=== PATIENT | female | born 1985 | race Caucasian/White ===

== ENCOUNTER 2016-03-18 08:43 | Emergency (ER) | payer OTHER ==
[~2016-03-18] VITALS: Ht 162.6 cm; Wt 63.1 kg
[~2016-03-18 08:43] MED LIST: BIRTH CONTROL PILLS; CLEOCIN300 MG PO; ENDOCET 5-3251 EACH PO; FEOSOL325 MG PO; IBUPROFEN800 MG PO; Motrin PO; NOHOMEMEDS; PREFERA-OB P1 TABLET PO; PRENATAL TABLE1 EAC3 PO; Percocet 5/325,Endoc PO; REGLAN5 MG PO; TUMS500 MG PO; TYLENOL EXTRA500 MG PO; TYLENOL WITH C1 EACH PO; ULTRAM50 MG PO; VITAMIN B-650 M1 PO
[2016-03-18 10:45] LABS: EOSINOPHIL (%) 0.2 % (0-5); HEMATOCRIT 35.3 % (36.0-46.0); IMMATURE GRANULOCYTE (%) 0.5 % (0.0-0.7); IMMATURE GRANULOCYTE COUNT 0.3 K/uL; LYMPHOCYTE COUNT 0.2 K/uL (1.0-2.8); MCH 32.9 PG (29.0-34.0); MCHC 35.1 G/DL (30.0-36.0); MCV 93.6 FL (83-99); MEAN PLAT.VOLUME 10.6 uM^3 (9.5-12.4); MONOCYTE COUNT 0.3 K/uL (0-0.8); NEUTROPHIL (%) 90.5 % (45-76); NEUTROPHIL COUNT 5.6 K/uL (1.8-6.4); PLATELET COUNT 153 K/uL (156-360); RBC DIS.WIDTH-CV 11.8 % (11.8-14.6); RBC DIS.WIDTH-SD 39.2 % (39-53); RED BLOOD COUNT 3.77 M/uL (3.80-5.20); WHITE BLOOD COUNT 6.2 K/uL (4.1-10.2)
[2016-03-18 10:55] LABS: CHLORIDE 108 mEq/L (99-109); POTASSIUM 3.9 mEq/L (3.7-5.4); SODIUM 141 mEq/L (136-147)
[2016-03-18 10:56] LABS: GLUCOSE 103 mg/dL (70-99)
[2016-03-18 10:58] LABS: ANION GAP 10 MEQ/L (2-14)
[2016-03-18 11:00] LABS: GFR ESTIMATE (CALCULATED) > 59 mL/min/
[2016-03-18 11:01] LABS: UREA NITROGEN (BUN) 20 mg/dL (9-23)
[2016-03-18] MEDS ORDERED: BENTYL20 MG PO (11:25)
[2016-03-18] MEDS ORDERED: ZOFRAN ODT4 MG PO (11:25)
[2016-03-18] MEDS ORDERED: IMODIUM MS REL1 EACH PO (11:25)
[2016-03-18 11:39] VITALS: BP 104/61
== END 2016-03-18 11:35 | disposition home or self-care (01) ==
LOC: EME 08:43
PROVIDERS: Emergency Medicine
DX: K52.9 Noninfective gastroenteritis and colitis, unspecified (principal); Z88.0 Allergy status to penicillin
CPT/HCPCS: 80048; 85025; 99281; 99285; J1885; J2405; J7030

== ENCOUNTER 2017-03-04 14:15 | Emergency (ER) | payer OTHER ==
[~2017-03-04] VITALS: Ht 160 cm; Wt 67.6 kg
[~2017-03-04 14:15] MED LIST changes: +BENTYL20 MG PO; +IMODIUM MS REL1 EACH PO; +ZOFRAN ODT4 MG PO
[2017-03-04 16:00] LABS: HEMATOCRIT 35.7 % (36.0-46.0); HEMOGLOBIN 12.8 G/DL (11.9-15.5); MCH 33.4 PG (29.0-34.0); MCHC 35.9 G/DL (30.0-36.0); MCV 93.2 FL (83-99); PLATELET COUNT 173 K/uL (156-360); RBC DIS.WIDTH-CV 11.7 % (11.8-14.6); RBC DIS.WIDTH-SD 39.9 % (39-53); RED BLOOD COUNT 3.83 M/uL (3.80-5.20); WHITE BLOOD COUNT 4.1 K/uL (4.1-10.2)
[2017-03-04 16:14] LABS: CHLORIDE 108 mEq/L (99-109); POTASSIUM 4.1 mEq/L (3.7-5.4); SODIUM 142 mEq/L (136-147)
[2017-03-04 16:16] LABS: GLUCOSE 79 mg/dL (70-99)
[2017-03-04 16:20] LABS: CREATININE 0.7 mg/dL (0.6-1.3); GFR ESTIMATE (CALCULATED) > 59 mL/min/
[2017-03-04 16:21] LABS: UREA NITROGEN (BUN) 10 mg/dL (9-23)
[2017-03-04 16:28] LABS: QUANTITATIVE HCG < 4.0 MIU/ML
[2017-03-04 17:39] LABS: APPEARANCE CLEAR ((CLEAR)); BILIRUBIN NEGATIVE; BLOOD NEGATIVE; COLOR YELLOW ((YELLOW)); GLUCOSE (STRIP) NEGATIVE; KETONES 20; LEUKOCYTES NEGATIVE; NITRITE NEGATIVE; PROTEIN (STRIP) NEGATIVE; SPECIFIC GRAVITY 1.015 (1.000-1.030); UROBILINOGEN 0.2 MG/DL (0.2-1.0)
[2017-03-04 17:52] LABS: AMPHETAMINE NEGATIVE (500 ng/mL); BARBITURATES NEGATIVE (200 ng/mL); BENZODIAZEPINES NEGATIVE (150 ng/mL); BUPRENORPHINE NEGATIVE (10 ng/mL); COCAINE NEGATIVE (150 ng/mL); METHADONE NEGATIVE (200 ng/mL); METHAMPHETAMINE NEGATIVE (500 ng/mL); OPIATES (MORPHINE) NEGATIVE (100 ng/mL); OXYCODONE NEGATIVE (100 ng/mL); PHENCYCLIDINE NEGATIVE (25 ng/mL); PROPOXYPHENE NEGATIVE (300 ng/mL); THC CANNABINOIDS PRESUMPTIVE POSITIVE (50 ng/mL); TRICYCLIC ANTIDEPRESSANTS NEGATIVE (300 ng/mL)
[2017-03-04 17:56] VITALS: BP 111/77
== END 2017-03-04 18:07 | disposition home or self-care (01) ==
LOC: EME 14:15
PROVIDERS: Nurse Practitioner Family
DX: R53.1 Weakness (principal); R47.81 Slurred speech; Z88.0 Allergy status to penicillin
CPT/HCPCS: 70450; 80048; 81003; 84702; 84999; 85027; 99281; 99285; J1885

== ENCOUNTER 2017-08-13 06:55 | Emergency (ER) | payer OTHER ==
[~2017-08-13] VITALS: Ht 165.1 cm; Wt 68.3 kg
[2017-08-13 06:57] VITALS: BP 114/77
[2017-08-13 07:53] LABS: APPEARANCE CLOUDY ((CLEAR)); BILIRUBIN NEGATIVE; BLOOD NEGATIVE; COLOR YELLOW ((YELLOW)); GLUCOSE (STRIP) NEGATIVE; KETONES NEGATIVE; LEUKOCYTES NEGATIVE; NITRITE NEGATIVE; PROTEIN (STRIP) NEGATIVE; UROBILINOGEN 0.2 MG/DL (0.2-1.0)
[2017-08-13 08:12] LABS: BACTERIA NONE SEEN /HPF; EPITHELIAL CELLS 3+ /HPF; MUCUS TRACE /LPF; RED BLOOD CELLS 0-5 /HPF (0-5); UCUL ADDED? NO; WHITE BLOOD CELLS NONE SEEN /HPF (0-5)
== END 2017-08-13 08:25 | disposition left against medical advice (07) ==
LOC: EME 06:55
PROVIDERS: Nurse Practitioner Family
DX: M54.5 Low back pain (principal); R30.0 Dysuria; K21.9 Gastro-esophageal reflux disease without esophagitis; Z88.0 Allergy status to penicillin
CPT/HCPCS: 81003; 99281; 99284; J1885